=== PATIENT | male | born 1995 | race Caucasian/White ===

== ENCOUNTER 2024-03-28 18:09 | Emergency (ER) | payer OTHER ==
[2024-03-28 18:35] VITALS: BP 122/68; PULSE 81; RESP 19; TEMP 97.5; BMI 25.8
== END 2024-03-28 19:17 | disposition home or self-care (01) ==
LOC: JERFT 18:09
DX: M25.562 Pain in left knee (principal); M79.641 Pain in right hand; X50.1XXA Overexertion from prolonged static or awkward postures, initial encounter; Y93.01 Activity, walking, marching and hiking
CPT/HCPCS: 73130-TC-RT-FY; 99283-25

== ENCOUNTER 2025-07-14 16:00 | Emergency (ER) | payer OTHER ==
[2025-07-14 16:07] VITALS: BP 120/78; PULSE 77; RESP 20; TEMP 98.1; BMI 26.6
== END 2025-07-14 17:24 | disposition home or self-care (01) ==
LOC: JERFT 16:00
DX: M62.830 Muscle spasm of back (principal)
CPT/HCPCS: 99282-25